=== PATIENT | female | born 1935 | race Asian ===

== ENCOUNTER 2016-11-13 10:44 | Emergency (ER) | payer OTHER ==
[~2016-11-13] VITALS: Ht 152.4 cm; Wt 39.9 kg
[2016-11-13 11:08] VITALS: BP 164/86
--- NOTE | 2016-11-13 12:24 | NUR ---
Pt taken to bed 7.
--- NOTE | 2016-11-13 12:29 | NUR ---
Pt placed into a gown and placed into position of comfort.
--- NOTE | 2016-11-13 12:39 | NUR ---
81/F c/o N/V/D since last night. Pt denies pain at this time. Pt bib son. No vomiting or diarrhea noted while patient has been in ED at this time. Patient s AOX4, wolof speaking, appears fatigued. Skin pale, cool, loose skin. VSS.
[2016-11-13] MEDS ORDERED: FAMOTIDINE 20 MG/2 ML VIAL IVP ONE (12:40)
[2016-11-13] MEDS ORDERED: ONDANSETRON 4 MG/2 ML VIAL IVP ONE ×3 (12:40→15:10)
[2016-11-13] MEDS: NACL 0.9% 1,000 ML IV SCH ×2 (12:51→12:57)
[2016-11-13 12:58] LABS: HEMATOCRIT 40.2 % (36-48); HEMOGLOBIN 13.6 g/dL (12.0-16.0); MEAN CORPUSCULAR HEMOGLOBIN 32 pg (27-31); MEAN CORPUSCULAR HGB CONC 34 g/dL (33-37); MEAN CORPUSCULAR VOLUME 95 fL (80-94); PLATELET COUNT (AUTO) 151 K/uL (140-450); RED BLOOD CELL COUNT(AUTO) 4.22 MIL/uL (4.20-5.40); RED CELL DISTRIBUTION WIDTH 11.8 % (11.6-13.7)
--- NOTE | 2016-11-13 13:04 | NUR ---
software support technician at bedside.
--- NOTE | 2016-11-13 13:14 | NUR ---
Patient transferred to bed 6 for further care. PLASTIC PANEL INSTALLER re-evaluating patient at bedside.
[2016-11-13 13:22] LABS: BAND % (MANUAL) 2 % (0-8); BASOPHILS % (MANUAL) 0 % (0-2); EOSINOPHILS % (MANUAL) 0 % (0-4); LYMPHOCYTES % (MANUAL) 9 % (20-46); MONOCYTES % (MANUAL) 4 % (5-12); NEUTROPHILS % (MANUAL) 85 (43-65); PLATELET ESTIMATE ADEQUATE
--- NOTE | 2016-11-13 13:43 | NUR ---
Pt w/c assisted to restroom.
[2016-11-13] MEDS ORDERED: HYDROmorphone 1 MG/ML AMP IVP ONE (13:45)
[2016-11-13 13:55] LABS: PARTIAL THROMBOPLASTIN TIME 24.7 secs (22-35.6); PROTHROMBIN TIME 9.9 secs (10.8-13.4)
[2016-11-13 13:58] LABS: ANION GAP 13.7 (8-16); CALCIUM 9.1 mg/dL (8.5-10.1); CARBON DIOXIDE 26.8 mmol/L (21-32); CHLORIDE 104 mmol/L (98-107); CREATININE 0.8 mg/dL (0.6-1.3); GLUCOSE 150 mg/dL (74-106); POTASSIUM 3.5 mmol/L (3.5-5.1); SODIUM SERUM 141 mmol/L (136-145); UREA NITROGEN, BLOOD 21 mg/dL (7-18)
[2016-11-13 14:03] LABS: ALANINE AMINOTRANSFERASE 18 U/L (14-59); ALBUMIN 3.8 g/dL (3.4-5.0); ALKALINE PHOSPHATASE 48 U/L (46-116); AMYLASE 66 U/L (25-115); ASPARTATE AMINOTRANSFERASE 19 U/L (15-37); LIPASE 124 U/L (73-393); TOTAL PROTEIN, SERUM 8.5 g/dL (6.4-8.2)
[2016-11-13] MEDS ORDERED: NACL 0.9% 1,000 ML IV ONE (14:15)
--- NOTE | 2016-11-13 14:27 | NUR ---
Patient taken to CT via gurney.
[2016-11-13 14:31] LABS: APPEARANCE,URINE HAZY (CLEAR); BILIRUBIN,URINE NEGATIVE (NEGATIVE); BLOOD, URINE 2+ (NEGATIVE); COLOR,URINE YELLOW (YELLOW); LEUKOCYTE ESTERASE ,URINE TRACE (NEGATIVE); NITRITE, URINE NEGATIVE (NEGATIVE); PROTEIN,URINE TRACE (NEGATIVE); UGLUCOSE NEGATIVE (NEGATIVE); UROBILINOGEN,URINE 0.2 EU/dL (0.2 - 1)
[2016-11-13 14:47] LABS: TOTAL BILIRUBIN 0.5 mg/dL (0.0-1.0)
--- NOTE | 2016-11-13 14:53 | NUR ---
Pt back from CT.
[2016-11-13 14:59] LABS: BACTERIA,URINE 4+ /HPF (None Seen); SQUAMOUS EPITHELIAL CELL,UR 0-3 /LPF (0-3 (FEW))
--- NOTE | 2016-11-13 15:32 | NUR ---
Pt resting bed at this time. No distress noted.
[2016-11-13] MEDS ORDERED: cefTRIAXone 1,000 MG VIAL ONE (15:58)
--- NOTE | 2016-11-13 16:01 | NUR ---
Son at bedside.
--- NOTE | 2016-11-13 16:34 | NUR ---
Patient discharged with BP 165/81; DENIES HEADACHE OR DIZZINESS, MD AWARE. Written and verbal after care instructions given and explained. Patient alert, oriented and verbalized understanding of instructions. Wheel Chair Assisted with to car. All questions addressed prior to discharge. ID band removed. Patient advised to follow up with PMD. Rx of ZOFRAN,FLAGYL, LOMOTIL & TYLENOL W/ CODEINE NO3 given. Patient educated on indication of medication including possible reaction and side effects. Opportunity to ask questions provided and answered.
[2016-11-13 16:37] VITALS: BP 165/81
== END 2016-11-13 16:34 | disposition home or self-care (01) ==
LOC: MED 10:44
DX: K52.9 Noninfective gastroenteritis and colitis, unspecified (principal); N20.0 Calculus of kidney; B19.20 Unspecified viral hepatitis C without hepatic coma; I10 Essential (primary) hypertension
CPT/HCPCS: 36415; 71010; 74176; 80053; 81001; 81025; 82150; 82553; 83690; 83880; 84484; 85025; 85610; 85730; 87086; 93005; 96361; 96365; 96375; 96376; 99285; J0696; J1170; J2405; J3490; J7030; J7060; Q0092

== ENCOUNTER 2016-12-03 14:14 | Emergency (ER) | payer OTHER ==
[~2016-12-03] VITALS: Ht 154.9 cm; Wt 39.6 kg
[2016-12-03 14:15] VITALS: BP 126/65
--- NOTE | 2016-12-03 15:49 | NUR ---
Patient ambulated to bed 06.
--- NOTE | 2016-12-03 15:49 | NUR ---
Mariely choi in [facility] - 12/03/16 at 1549 by SANDOVAL PT AMBULATED TO BED 6 AT THIS TIME.
--- NOTE | 2016-12-03 15:58 | NUR ---
Dr. Mejia evaluating patient at bedside.
--- NOTE | 2016-12-03 16:00 | NUR ---
81/F BIB FAMILY C/O BILAT FLANK PAIN x 3 DAYS. SKIN IS PINK/WARM/DRY; AAOX4 ; LUNGS CLEAR BL; HR EVEN AND REGULAR; PT DENIES ANY FEVER, CP, SOB, OR COUGH AT THIS TIME; PATIENT STATES PAIN OF 9/10 AT THIS TIME; VSS; PATIENT POSITIONED FOR COMFORT; HOB ELEVATED; BEDRAILS UP X2; BED DOWN. ER MD MADE AWARE OF PT STATUS.
[2016-12-03] MEDS ORDERED: cefTRIAXone 1,000 MG in DEXT 5% MINI-BAG PLUS 50 ML IV ONE (16:05)
[2016-12-03] MEDS ORDERED: NACL 0.9% 1,000 ML IV SCH (16:05)
[2016-12-03 16:26] LABS: BASOPHILS # (AUTO) 0.3 K/uL (0.00-0.22); EOSINOPHILS # (AUTO) 0.1 K/uL (0-0.4); HEMATOCRIT 36.9 % (36-48); HEMOGLOBIN 12.6 g/dL (12.0-16.0); LYMPHOCYTES # (AUTO) 0.8 K/uL (2.5-16.5); MEAN CORPUSCULAR HEMOGLOBIN 32 pg (27-31); MEAN CORPUSCULAR HGB CONC 34 g/dL (33-37); MEAN CORPUSCULAR VOLUME 95 fL (80-94); MONOCYTES # (AUTO) 0.4 K/uL (0.8-1.0); PLATELET COUNT (AUTO) 144 K/uL (140-450); RED CELL DISTRIBUTION WIDTH 12.1 % (11.6-13.7); WHITE BLOOD COUNT (AUTO) 9.6 K/uL (4.8-10.8)
[2016-12-03 16:28] LABS: BILIRUBIN,URINE NEGATIVE (NEGATIVE); BLOOD, URINE NEGATIVE (NEGATIVE); COLOR,URINE YELLOW (YELLOW); LEUKOCYTE ESTERASE ,URINE TRACE (NEGATIVE); NITRITE, URINE NEGATIVE (NEGATIVE); PROTEIN,URINE NEGATIVE (NEGATIVE); UGLUCOSE NEGATIVE (NEGATIVE); UROBILINOGEN,URINE 0.2 EU/dL (0.2 - 1)
[2016-12-03 16:33] LABS: APPEARANCE,URINE HAZY (CLEAR)
[2016-12-03 16:41] LABS: ANION GAP 12.2 (8-16); CALCIUM 9.2 mg/dL (8.5-10.1); CARBON DIOXIDE 26.2 mmol/L (21-32); CHLORIDE 102 mmol/L (98-107); CREATININE 0.8 mg/dL (0.6-1.3); GLUCOSE 121 mg/dL (74-106); POTASSIUM 4.4 mmol/L (3.5-5.1); SODIUM SERUM 136 mmol/L (136-145); UREA NITROGEN, BLOOD 16 mg/dL (7-18)
[2016-12-03 16:42] LABS: BACTERIA,URINE FEW /HPF (None Seen); RBC,URINE 0-3 /HPF (0-5); WBC,URINE 0-5 /HPF (0-5)
[2016-12-03] MEDS ORDERED: cefTRIAXone 1,000 MG VIAL ONE (16:46)
[2016-12-03 16:47] LABS: ALANINE AMINOTRANSFERASE 14 U/L (14-59); ALBUMIN 3.6 g/dL (3.4-5.0); ALKALINE PHOSPHATASE 48 U/L (46-116); ASPARTATE AMINOTRANSFERASE 16 U/L (15-37); LIPASE 204 U/L (73-393); TOTAL BILIRUBIN 0.9 mg/dL (0.0-1.0); TOTAL PROTEIN, SERUM 7.7 g/dL (6.4-8.2)
[2016-12-03 18:40] VITALS: BP 125/60
--- NOTE | 2016-12-03 18:40 | NUR ---
Patient discharged with v/s stable. Written and verbal after care instructions given and explained. Patient alert, oriented and verbalized understanding of instructions. Ambulatory with WALKER.PT'S SON AT BEDSIDE. All questions addressed prior to discharge. ID band removed. Patient advised to follow up with PMD. Rx of NORCO AND CIPRO given. Patient educated on indication of medication including possible reaction and side effects. Opportunity to ask questions provided and answered.
== END 2016-12-03 18:40 | disposition home or self-care (01) ==
LOC: MED 14:14
DX: N39.0 Urinary tract infection, site not specified (principal); I10 Essential (primary) hypertension
CPT/HCPCS: 36415; 74176; 80053; 81001; 83690; 85025; 96361; 96365; 99285; J0696; J7030; J7060

== ENCOUNTER 2018-10-23 17:52 | Emergency (ER) | payer OTHER ==
[~2018-10-23] VITALS: Ht 154.9 cm; Wt 42.8 kg
[2018-10-23 17:55] VITALS: BP 120/92
--- NOTE | 2018-10-23 18:03 | NUR ---
PT AMBULATED TO ER BED 3
--- NOTE | 2018-10-23 18:38 | NUR ---
C/O EYE REDNESS AND EYE PAIN X3 DAYS. PT REPORTS CONSTANT SHARP PAIN IN RT EYE AT 8/10. PT ALSO REPORTS BLURY VISION IN RT EYE. PT HAS APPOINTMENT WITH OPTOMOLOGIST 10/30, BUT PT IS IN TOO MUCH PAIN TO WAIT. EYE IS RED, WATERY & ITCHY/PAINFUL. DENIES USE OF CREAMS OR MAKE UP NEAR EYE. BED IN LOW POSITION, SIDE RAIL UP X1.
--- NOTE | 2018-10-23 19:12 | NUR ---
RECEIVED REPORT FROM TREVIN CHO. TRANSFER OF CARE AT THIS TIME.
--- NOTE | 2018-10-23 19:46 | NUR ---
PT RETURN FROM CT
--- NOTE | 2018-10-23 19:53 | NUR ---
LAB AT BEDSIDE
[2018-10-23 20:13] LABS: BASOPHILS % (AUTO) 0.8 % (0.0-2.0); EOSINOPHILS # (AUTO) 0.2 K/uL (0-0.4); EOSINOPHILS % (AUTO) 3.8 % (0.0-4.0); HEMATOCRIT 39.7 % (36-48); HEMOGLOBIN 13.4 g/dL (12.0-16.0); LYMPHOCYTES # (AUTO) 1.7 K/uL (2.5-16.5); LYMPHOCYTES % (AUTO) 28.6 % (20.5-51.1); MEAN CORPUSCULAR HEMOGLOBIN 32 pg (27-31); MEAN CORPUSCULAR HGB CONC 34 g/dL (33-37); MEAN CORPUSCULAR VOLUME 95.5 fL (80-94); MONOCYTES # (AUTO) 0.5 K/uL (0.8-1.0); MONOCYTES % (AUTO) 8.2 % (1.7-9.3); NEUTROPHILS # (AUTO) 3.4 K/uL (1.8-7.7); NEUTROPHILS % (AUTO) 58.6 % (42.2-75.2); PLATELET COUNT (AUTO) 148 K/uL (140-450); RED BLOOD CELL COUNT(AUTO) 4.16 MIL/uL (4.20-5.40); RED CELL DISTRIBUTION WIDTH 12.6 % (11.6-13.7); WHITE BLOOD COUNT (AUTO) 5.8 K/uL (4.8-10.8)
[2018-10-23 20:23] LABS: ANION GAP 12.5 (8-16); CARBON DIOXIDE 27.1 mmol/L (21-32); CHLORIDE 105 mmol/L (98-107); CREATININE 0.9 mg/dL (0.6-1.3); GLUCOSE 125 mg/dL (74-106); POTASSIUM 3.6 mmol/L (3.5-5.1); SODIUM SERUM 141 mmol/L (136-145); UREA NITROGEN, BLOOD 23 mg/dL (7-18)
[2018-10-23 20:29] LABS: ALBUMIN 3.9 g/dL (3.4-5.0); ASPARTATE AMINOTRANSFERASE 20 U/L (15-37); TOTAL BILIRUBIN 0.3 mg/dL (0.0-1.0)
[2018-10-23] MEDS ORDERED: SULFAMETH/TRIMETH DS 800/160MG 1 TAB PO ONE (21:05)
[2018-10-23] MEDS ORDERED: AMOXIL/CLAVULANATE 875/125 MG 1 TAB PO ONE (21:05)
--- NOTE | 2018-10-23 21:17 | NUR ---
CALLED HOUSE SUP FOR AUGMENTIN NOT AVAILABLE IN ER PYXIS.
[2018-10-23 21:35] VITALS: BP 176/80
--- NOTE | 2018-10-23 21:35 | NUR ---
Patient discharged with v/s stable. Written and verbal after care instructions given and explained. Patient alert, oriented and verbalized understanding of instructions. Ambulatory with steady gait. All questions addressed prior to discharge. ID band removed. Patient advised to follow up with PMD. Rx of Augmentin and Bactrim given. Patient educated on indication of medication including possible reaction and side effects. Opportunity to ask questions provided and answered.
[2018-10-23] MEDS ORDERED: AMOXIL/CLAVULANATE 875/125 MG 1 TAB ONE (21:38)
== END 2018-10-23 21:35 | disposition home or self-care (01) ==
LOC: MED 17:52
DX: L03.213 Periorbital cellulitis (principal); I10 Essential (primary) hypertension; E78.5 Hyperlipidemia, unspecified; Z86.19 Personal history of other infectious and parasitic diseases; Z98.890 Other specified postprocedural states
CPT/HCPCS: 36415; 70486; 80053; 83605; 85025; 87040; 99284